=== PATIENT | male | born 1990 | race African-American/Black ===

== ENCOUNTER 2016-08-24 11:46 | Emergency (ER) | payer OTHER | END 2016-08-24 13:56 | disposition home or self-care (01) | LOC: D.ER 11:46 | DX: J06.9 Acute upper respiratory infection, unspecified (principal); S60.221A Contusion of right hand, initial encounter; V89.2XXA Person injured in unspecified motor-vehicle accident, traffic, initial encounter; Y93.89 Activity, other specified; Y92.410 Unspecified street and highway as the place of occurrence of the external cause; F17.200 Nicotine dependence, unspecified, uncomplicated ==

== ENCOUNTER 2016-11-21 08:20 | Emergency (ER) | payer OTHER ==
[2016-11-21 08:48] LABS: APPEARANCE CLEAR (CLEAR); BILIRUBIN NEGATIVE (NEGATIVE); COLOR YELLOW (YELLOW); GLUCOSE NEGATIVE (NEGATIVE); KETONE NEGATIVE (NEGATIVE); LEUKOCYTE ESTERASE NEGATIVE (NEGATIVE); NITRITE NEGATIVE (NEGATIVE); PROTEIN NEGATIVE (NEGATIVE); UROBILINOGEN NORMAL (NORMAL)
[2016-11-21 08:54] LABS: BASOPHILS 0.6 % (0-2); HEMATOCRIT 44.1 % (42.0-54.0); HEMOGLOBIN 15.3 g/dL (13.5-17.5); IMMATURE GRANULOCYTES 0.7 % (0-5); LYMPHOCYTES 23.8 % (15-50); MCH 33.2 pg (26.0-34.0); MCHC 34.7 g/dL (31.0-37.0); MCV 95.7 fL (80.0-100.0); MEAN PLATELET VOLUME 9.9 fL (7.4-10.4); MONOCYTES 6.6 % (2-11); NEUTROPHILS 65.3 % (40-80); PLATELET COUNT 199 10x3/uL (130-400); RBC 4.61 10x6/uL (4.20-6.10); RDW 11.7 % (11.5-14.5)
[2016-11-21 09:11] LABS: UDS - AMPHET NEGATIVE QUAL (NEGATIVE); UDS - BARB NEGATIVE QUAL (NEGATIVE); UDS - BENZO NEGATIVE QUAL (NEGATIVE); UDS - COCAINE NEGATIVE QUAL (NEGATIVE); UDS - METH NEGATIVE QUAL (NEGATIVE); UDS - OPIATE NEGATIVE QUAL (NEGATIVE); UDS - PCP NEGATIVE QUAL (NEGATIVE); UDS - THC POSITIVE QUAL (NEGATIVE)
[2016-11-21 09:14] LABS: ALBUMIN 4.1 g/dL (3.4-5.0); ALKALINE PHOSPHATASE 75 U/L (46-116); ALT (SGPT) 19 U/L (10-68); BILIRUBIN - TOTAL 1.82 mg/dL (0.2-1.3); CALC OSMOLALITY 277 mosm/kg (275-300); CALCIUM 9.1 mg/dL (8.5-10.1); CARBON DIOXIDE 27.6 mmol/L (21.0-32.0); CHLORIDE - SERUM 105 mmol/L (98-107); CREATININE - SERUM 0.9 mg/dL (0.6-1.3); GLUCOSE 99 mg/dL (74-106); POTASSIUM - SERUM 3.5 mmol/L (3.5-5.1); PROTEIN - SERUM 7.7 g/dL (6.4-8.2); SODIUM 140 mmol/L (136-145); UREA NITROGEN 9 mg/dL (7-18); eGFR NON AFRICAN AMERICAN > 90 mL/min (90-120)
== END 2016-11-21 09:38 | disposition home or self-care (01) ==
LOC: D.ER 08:20
PROVIDERS: Family Medicine
DX: F41.9 Anxiety disorder, unspecified (principal); F41.8 Other specified anxiety disorders

== ENCOUNTER 2017-11-02 17:17 | Emergency (ER) | payer OTHER ==
[~2017-11-02] VITALS: Ht 170.2 cm; Wt 63.6 kg
[2017-11-02 17:40] VITALS: Ht 170.2 cm; Wt 63.6 kg
[2017-11-02] MEDS ORDERED: MINOCIN100 MG PO (18:47)
[2017-11-02] MEDS ORDERED: VOLTAREN75 MG PO (18:47)
[2017-11-02 19:18] VITALS: BP 102/56
== END 2017-11-02 19:23 | disposition home or self-care (01) ==
LOC: D.ER 17:17
DX: S61.212A Laceration without foreign body of right middle finger without damage to nail, initial encounter (principal); X78.9XXA Intentional self-harm by unspecified sharp object, initial encounter; Y93.89 Activity, other specified; Y92.019 Unspecified place in single-family (private) house as the place of occurrence of the external cause; S69.91XA Unspecified injury of right wrist, hand and finger(s), initial encounter; F17.200 Nicotine dependence, unspecified, uncomplicated

== ENCOUNTER 2018-10-17 19:20 | Emergency (ER) | payer MEDICAID ==
[~2018-10-17] VITALS: Ht 170.2 cm; Wt 63.5 kg
[~2018-10-17 19:20] MED LIST: MINOCIN100 MG PO; VOLTAREN75 MG PO
[2018-10-17 19:29] VITALS: Ht 170.2 cm; Wt 63.5 kg
[2018-10-17 21:48] LABS: APPEARANCE CLEAR (CLEAR); BILIRUBIN NEGATIVE (NEGATIVE); COLOR YELLOW (YELLOW); GLUCOSE NEGATIVE (NEGATIVE); KETONE NEGATIVE (NEGATIVE); NITRITE NEGATIVE (NEGATIVE); PROTEIN NEGATIVE (NEGATIVE); SPECIFIC GRAVITY 1.015 (1.005-1.020); UROBILINOGEN NORMAL (NORMAL)
[2018-10-17] MEDS ORDERED: VIBRAMYCIN 100100 MG PO (21:58)
[2018-10-17 22:05] VITALS: BP 131/83
== END 2018-10-17 22:06 | disposition home or self-care (01) ==
LOC: D.ER 19:20
PROVIDERS: Family Medicine
DX: R30.0 Dysuria (principal)